=== PATIENT | female | born 1965 | race Caucasian/White ===

== ENCOUNTER 2020-02-15 10:17 | Emergency (ER) | payer BC, MEDICAID ==
[~2020-02-15] VITALS: Ht 154.9 cm; Wt 63.5 kg
[~2020-02-15 10:17] MED LIST: ALPR1TAB2 PO
[2020-02-15 11:44] LABS: Urine Bacteria FEW /hpf (None Seen); Urine Blood Negative /uL (Negative); Urine Mucus FEW (None Seen); Urine Specific Gravity 1.025 (1.001-1.035); Urine WBC 82 /hpf (0 - 5)
[2020-02-15 11:50] LABS: Basophils # (auto) 0 10 ^3/uL (0-0.2); Basophils % (auto) 0.5 % (0.0-2.0); Eosinophils # (auto) 0.1 10 ^3/uL (0-0.8); Eosinophils % (auto) 2.3 % (0.0-7.0); Hematocrit 41.8 % (36.0-46.0); Hemoglobin 13.9 g/dL (12.2-16.2); Lymphocytes # (auto) 1.5 10 ^3/uL (0.4-5.4); Lymphocytes % (auto) 25.8 % (10.0-50.0); Mean Corpuscular Hemoglobin 28.8 pg (28.0-32.0); Mean Corpuscular Hgb Conc. 33.2 g/dL (32.0-36.0); Mean Corpuscular Volume 86.9 fL (80.0-100.0); Monocytes # (auto) 0.3 10 ^3/uL (0-1.3); Monocytes % (auto) 5.2 % (0.0-12.0); Neutrophils # (auto) 3.8 10 ^3/uL (1.6-8.6); Neutrophils % (auto) 66.2 % (37.0-80.0); Nucleated Red Blood Cells % 0.1 %; Platelet Count (auto) 246 10^3/uL (140-450); Red Blood Cells 4.81 10^6/uL (4.0-5.20); Red Cell Distribution Width 12.8 % (11.8-14.3); White Blood Cell 5.8 10^3/uL (4.4-10.8)
[2020-02-15 12:03] LABS: Potassium 3.7 mmol/L (3.5-5.1)
[2020-02-15 12:10] LABS: Albumin 3.6 g/dL (3.4-5.0); BUN/Creatinine Ratio 16.2; Bilirubin, Total 0.4 mg/dL (0.2-1.0); Calcium 8.9 mg/dL (8.5-10.1); Total Protein 7.2 g/dL (6.4-8.2)
[2020-02-15 12:42] LABS: Amylase 209 U/L (25-115); Blood Alcohol < 3.0 mg/dL (0-5); Lipase 1081 U/L (73-393)
[2020-02-15 12:45] LABS: Cholesterol 158 mg/dL (< 200); HDL Cholesterol 64 mg/dL (40-59); LDL Cholesterol 85 mg/dL (< 100); Triglycerides 87 mg/dL (< 150)
[2020-02-15 12:48] LABS: INR 0.98 (0.9-1.15); Partial Thromboplastin Time 30.1 sec (23.64-32.05)
[2020-02-15] MEDS ORDERED: ONDANSETRON HCL 4 MG/2 ML VIAL IV ONE (13:30)
[2020-02-15] MEDS ORDERED: SODIUM CHLORIDE 0.9% 1,000 ML IV ONE (13:30)
[2020-02-15] MEDS ORDERED: cefTRIAXone 1GM/50ML D5W 50 ML IV ONE (13:30)
[2020-02-15] MEDS ORDERED: MORPHINE SULFATE 4 MG/ML SYR/VIAL IV ONE (13:30)
[2020-02-15 13:42] VITALS: BP 132/71
== END 2020-02-15 15:31 | disposition home or self-care (01) ==
LOC: ER 10:17
DX: K85.90 Acute pancreatitis without necrosis or infection, unspecified (principal); N39.0 Urinary tract infection, site not specified; Z90.710 Acquired absence of both cervix and uterus; Z88.6 Allergy status to analgesic agent
CPT/HCPCS: 36415; 74176; 76705; 80053; 80061; 80320; 81001; 82150; 83690; 85025; 85610; 85730; 96365; 96375; 99285; J0696; J2270; J2405; J7030